=== PATIENT | female | born 1975 | race Caucasian/White ===

== ENCOUNTER → 2023-12-14 07:56 | Outpatient (REF) | payer BC, SELFPAY | LOC: RAD 07:56 | PROVIDERS: ATTENDING PHYSICIAN Family Medicine | DX: K30 Functional dyspepsia (principal) | CPT/HCPCS: 78264; A9541 ==

== ENCOUNTER → 2023-12-26 08:59 | Outpatient (REF) | payer BC, SELFPAY | LOC: WDC 08:59 | PROVIDERS: ATTENDING PHYSICIAN Obstetrics & Gynecology; FAMILY PHYSICIAN Family Medicine | DX: N64.4 Mastodynia (principal) | CPT/HCPCS: 76642; 77062; 77066 ==

== ENCOUNTER → 2023-12-27 07:38 | Outpatient (REF) | payer BC, SELFPAY | LOC: RAD 07:38 | PROVIDERS: ATTENDING PHYSICIAN Family Medicine | DX: R22.2 Localized swelling, mass and lump, trunk (principal) | CPT/HCPCS: 76882 ==

== ENCOUNTER → 2024-04-20 12:58 | Outpatient (REF) | payer BC, SELFPAY | LOC: RCS 12:58 | PROVIDERS: ATTENDING PHYSICIAN Internal Medicine Cardiovascular Disease; FAMILY PHYSICIAN Family Medicine | DX: R07.9 Chest pain, unspecified (principal); M79.89 Other specified soft tissue disorders | CPT/HCPCS: 93017; 70488; Q9967 ==

== ENCOUNTER → 2024-05-23 12:16 | Outpatient (REF) | payer BC, SELFPAY | LOC: RCS 12:16 | PROVIDERS: ATTENDING PHYSICIAN Internal Medicine Cardiovascular Disease; FAMILY PHYSICIAN Family Medicine | DX: R94.39 Abnormal result of other cardiovascular function study (principal); R07.9 Chest pain, unspecified; Z72.0 Tobacco use | CPT/HCPCS: 93017; 93350 ==

== ENCOUNTER 2025-02-01 06:14 | Day surgery (SDC) | payer BC, SELFPAY ==
[2025-01-14 14:09] VITALS: BMI 29.3
[2025-02-01] VITALS (10 sets, daily range): BP systolic 106–121; BP diastolic 62–77; BMI 29.3
[2025-02-01] MEDS: TYLENOL 1000 MG PO (07:32)
[2025-02-01] MEDS: CELEBREX 200 MG PO (07:32)
[2025-02-01] MEDS: NORMOSOL-R/PLASMALYTE-A 1000 IV (07:47)
--- NOTE | 2025-02-01 08:04 | PTCARENOTE ---
Patient forgot her sling at home. Trouble getting the family or boyfriend to bring the sling in. Patient was very upset that she could not get anyone to bring the sling in. Patient was yelling and cursing at her mom on the phone. Patient refused to
have her mom brought in before surgery to sit with her. Went out to the waiting room and spoke with patients parents. Not sure yet if the boyfriend is driving the sling here. Told patient mom to update me if the sling would be brought here. Told the
OR team as of now to issue another sling.
--- NOTE | 2025-02-01 08:24 | PTCARENOTE ---
Family did bring sling in. Delivered to the OR desk and OR team aware.
--- NOTE | 2025-02-01 09:24 | PTCARENOTE ---
Knee SCD ordered by Dr. Han. Patient sent to the OR with SCD on.
== END 2025-02-01 11:52 | disposition home or self-care (01) ==
LOC: SDS 06:14
PROVIDERS: ATTENDING PHYSICIAN Specialist; FAMILY PHYSICIAN Family Medicine
DX: M75.111 Incomplete rotator cuff tear or rupture of right shoulder, not specified as traumatic (principal); M75.41 Impingement syndrome of right shoulder; Z87.891 Personal history of nicotine dependence
CPT/HCPCS: 29827; 36415; 93005

== ENCOUNTER → 2025-05-18 14:11 | Outpatient (REF) | payer BC, SELFPAY | LOC: WDC 14:11 | PROVIDERS: ATTENDING PHYSICIAN Family Medicine | DX: Z12.31 Encounter for screening mammogram for malignant neoplasm of breast (principal) | CPT/HCPCS: 77063; 77067 ==

== ENCOUNTER → 2025-08-27 08:42 | Outpatient (REF) | payer BC, SELFPAY | LOC: RAD 08:42 | PROVIDERS: ATTENDING PHYSICIAN Family Medicine | DX: Z87.39 Personal history of other diseases of the musculoskeletal system and connective tissue (principal) | CPT/HCPCS: 77080 ==

== ENCOUNTER → 2025-08-27 13:00 | Outpatient (REF) | payer BC, SELFPAY | LOC: EMG 13:00 | PROVIDERS: ATTENDING PHYSICIAN Orthopaedic Surgery; FAMILY PHYSICIAN Family Medicine | DX: R20.0 Anesthesia of skin (principal); M79.642 Pain in left hand; M79.641 Pain in right hand; G56.03 Carpal tunnel syndrome, bilateral upper limbs | CPT/HCPCS: 95886; 95911 ==

== ENCOUNTER → 2025-08-29 09:20 | Outpatient (REF) | payer BC, SELFPAY | LOC: RAD 09:20 | PROVIDERS: ATTENDING PHYSICIAN Advanced Practice Midwife; FAMILY PHYSICIAN Family Medicine | DX: R10.20 Pelvic and perineal pain unspecified side (principal) | CPT/HCPCS: 76830; 76856 ==

== ENCOUNTER → 2025-09-17 07:47 | Outpatient (REF) | payer BC, SELFPAY | LOC: RAD 07:47 | PROVIDERS: ATTENDING PHYSICIAN Family Medicine | DX: K76.0 Fatty (change of) liver, not elsewhere classified (principal) | CPT/HCPCS: 76705 ==

== ENCOUNTER → 2025-10-28 20:25 | Outpatient (REF) | payer BC, SELFPAY | LOC: PAVMRI 20:25 | PROVIDERS: ATTENDING PHYSICIAN Family Medicine | DX: R41.3 Other amnesia (principal) | CPT/HCPCS: 70551 ==

== ENCOUNTER → 2025-10-29 06:51 | Outpatient (REF) | payer BC, SELFPAY | LOC: MRI 3T 06:51 | PROVIDERS: ATTENDING PHYSICIAN Orthopaedic Surgery; FAMILY PHYSICIAN Family Medicine; REFERRING PHYSICIAN Physician Assistant | DX: R41.3 Other amnesia (principal); M54.12 Radiculopathy, cervical region; M25.561 Pain in right knee | CPT/HCPCS: 72141; 73721 ==